=== PATIENT | male | born 1960 | race Caucasian/White ===

== ENCOUNTER 2020-12-18 11:13 | Emergency (ER) | payer BC ==
[~2020-12-18] VITALS: Ht 185.4 cm; Wt 108.4 kg
[~2020-12-18 11:13] MED LIST: CITALOPRAM HBR40 MG PO; LORAZEPAM1 MG PO
--- OUTSIDE RECORDS SUMMARY | 2020-12-18 11:16 | XMS ---
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 Ted has no Care Guidelines for this patient. Elvis VISIT COUNT (12 MO.) 1 [facility] Marquez TOTAL 1 NOTE: Visits indicate total known visits. ED/C VISIT TRACKING (12 MO.) 12/18/2020 11:14 [facility] Tre[facility] [place] TYPE: Emergency COMPLAINT: - LACERATION ON STOMACH INPATIENT VISIT TRACKING (12 MO.) No inpatient visits to display in this time frame [email or web address]
[2020-12-18] MEDS ORDERED: LISINOPRIL10 MG PO (11:26)
== END 2020-12-18 12:36 | disposition home or self-care (01) ==
LOC: ED 11:13
DX: S31.119A Laceration without foreign body of abdominal wall, unspecified quadrant without penetration into peritoneal cavity, initial encounter (principal); W26.0XXA Contact with knife, initial encounter; Z23 Encounter for immunization; Z87.891 Personal history of nicotine dependence; Z79.899 Other long term (current) drug therapy
CPT/HCPCS: 12002; 90471; 90715; 99282-25

== ENCOUNTER 2022-03-21 12:46 | Emergency (ER) | payer OTHER, BC ==
[~2022-03-21] VITALS: Ht 185.4 cm; Wt 125.1 kg
[~2022-03-21 12:46] MED LIST changes: +LISINOPRIL10 MG PO
--- OUTSIDE RECORDS SUMMARY | 2022-03-21 12:49 | XMS ---
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 ELetty VISIT COUNT (12 MO.) 1 GARRET Marquez TOTAL 1 NOTE: Visits indicate total known visits. ED/UCC VISIT TRACKING (12 MO.) 03/21/2022 12:47 [facility] [place] TYPE: Emergency COMPLAINT: - FALL, R ELBOW, SOB, BACK PAIN INPATIENT VISIT TRACKING (12 MO.) No inpatient visits to display in this time frame [email or web address]
[2022-03-21] MEDS ORDERED: DAYVIGO10 MG PO (14:45)
[2022-03-21] MEDS ORDERED: ROSUVASTATIN CA20 MG PO (14:45)
[2022-03-21] MEDS ORDERED: HYDROCODON-ACE1 EA11 PO (17:29)
[2022-03-21] MEDS ORDERED: CEPHALEXIN500 M1 PO (17:29)
[2022-03-23] MEDS ORDERED: BACTRIM DS TAB1 EACH PO (16:35)
[2022-03-23] MEDS ORDERED: HYDROCODON-ACE1 EA11 PO (16:35)
== END 2022-03-21 17:46 | disposition home or self-care (01) ==
LOC: ED 12:46
DX: S20.211A Contusion of right front wall of thorax, initial encounter (principal); M70.21 Olecranon bursitis, right elbow; I10 Essential (primary) hypertension; Z79.899 Other long term (current) drug therapy; W00.0XXA Fall on same level due to ice and snow, initial encounter
CPT/HCPCS: 71046; 73080; 99283-25; A9270

== ENCOUNTER 2022-03-24 14:41 | Emergency (ER) | payer BC ==
[~2022-03-24] VITALS: Ht 185.4 cm; Wt 125.1 kg
[~2022-03-24 14:41] MED LIST changes: +BACTRIM DS TAB1 EACH PO; +CEPHALEXIN500 M1 PO; +DAYVIGO10 MG PO; +HYDROCODON-ACE1 EA11 PO; +ROSUVASTATIN CA20 MG PO
--- OUTSIDE RECORDS SUMMARY | 2022-03-24 14:44 | XMS ---
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 Elvis VISIT COUNT (12 MO.) 3 [facility] [place] [facility] TOTAL 3 NOTE: Visits indicate total known visits. ED/C VISIT TRACKING (12 MO.) 03/24/2022 14:42 [facility] [place] TYPE: Emergency COMPLAINT: - R ARM/HAND SWELLING 03/23/2022 11:33 [facility] [place] TYPE: Emergency COMPLAINT: - R ELBOW SWELLING 03/21/2022 12:[address] [facility] [place] TYPE: Emergency COMPLAINT: - FALL, R ELBOW, SOB, BACK PAIN DIAGNOSES: - Dorsalgia, unspecified - Fall on same level due to ice and snow, initial encounter - Other roasterman (current) drug therapy - Olecranon bursitis, right elbow - Contusion of right front wall of thorax, initial encounter - Essential (primary) hypertension INPATIENT VISIT TRACKING (12 MO.) No inpatient visits to display in this time frame [email or web address]
== END 2022-03-24 21:15 | disposition home or self-care (01) ==
LOC: ED 14:41
DX: M70.21 Olecranon bursitis, right elbow (principal); I10 Essential (primary) hypertension; Z79.899 Other long term (current) drug therapy
CPT/HCPCS: 36415; 80048; 85025; 93971; 99284-25; A9270; J0696; J3370; J7060

== ENCOUNTER 2023-02-15 09:36 | Emergency (ER) | payer BC ==
[~2023-02-15] VITALS: Ht 185.4 cm; Wt 125.1 kg
--- OUTSIDE RECORDS SUMMARY | 2023-02-15 09:38 | XMS ---
PreManage Notification: HERRERA JOHNSON Security Rehab Aid Events No recent Security Events currently on file CRITERIA MET - [facility] - 2 Visits in 30 Days CARE PROVIDERS ALISSA CASTILLO [facility] 12/20/2020-Current PHONE: Unknown Ted has no Care Guidelines for this patient. Elvis VISIT COUNT (12 MO.) [address] [place] [address] TOTAL 5 NOTE: Visits indicate total known visits. ED/C VISIT TRACKING (12 MO.) 02/15/2023 09:37 [facility] [place] TYPE: Emergency COMPLAINT: - POST SURGERY, R ARM WOUND 02/11/2023 19:29 [facility] [place] TYPE: Emergency COMPLAINT: - FORIEGN BODY IN THROAT 03/24/2022 14:42 [facility] [place] TYPE: Emergency COMPLAINT: - R ARM/HAND SWELLING/ NO INJ DIAGNOSES: - Essential (primary) hypertension - Olecranon bursitis, right elbow - Other half-way (current) drug therapy - Pain in right arm 03/23/2022 11:33 [facility] [place] TYPE: Emergency COMPLAINT: - R ELBOW SWELLING DIAGNOSES: - Essential (primary) hypertension - Olecranon bursitis, right elbow - Other half-way (current) drug therapy - Pain in right elbow 03/21/2022 12:47 [facility] [place] TYPE: Emergency COMPLAINT: - FALL, R ELBOW, SOB, BACK PAIN DIAGNOSES: - Contusion of right front wall of thorax, initial encounter - Dorsalgia, unspecified - Essential (primary) hypertension - Fall on same level due to ice and snow, initial encounter - Olecranon bursitis, right elbow - Other director long term care (current) drug therapy INPATIENT VISIT TRACKING (12 MO.) 02/11/2023 19:30 [facility] [place] TYPE: Observation COMPLAINT: - FOREIGN BODY OF ESOPHOGUS DIAGNOSES: - Anxiety disorder, unspecified - Contact with and (suspected) exposure to COVID-19 - Depression, unspecified - Essential (primary) hypertension - Food in esophagus causing other injury, initial encounter [id number]
[2023-02-15] MEDS ORDERED: MELATONIN10 M2 PO (10:23)
[2023-02-15 10:38] LABS: BASOPHILS 0.4 % (0-2); EOSINOPHILS 5.1 % (0-6); HEMOGLOBIN 16.5 g/dL (12.0-18.0); LYMPHOCYTES 6.9 % (24-44); MCH 31.7 (27-36); MCHC 33.6 g/dl (30-36); MCV 94.5 fl (81-99); MONOCYTES 9.9 % (0-12); NEUTROPHILS 77.7 % (39-80); PLATELET COUNT 187 K/uL (140-440); RBC 5.19 M/ul (4.3-5.7); RDW 13.7 (10.5-15.0)
[2023-02-15 10:56] LABS: ALBUMIN 3.9 g/dL (3.4-5.0); BILIRUBIN, TOTAL 0.7 ng/dL (0.2-1.0); BUN/CREATININE RATIO 16.36 (6.0-28.6); CALCIUM 8.7 mg/dL (8.5-10.1); CREATININE, SERUM 1.1 mg/dL (0.70-1.30); PROTEIN, TOTAL 7.8 g/dL (6.4-8.2)
[2023-02-15 11:25] LABS: LACTIC ACID, BLOOD 0.7 mmol/L (0.4-2.0)
[2023-02-15 13:14] VITALS: BP 149/94
== END 2023-02-15 13:14 | disposition home or self-care (01) ==
LOC: ED 09:36
PROVIDERS: Emergency Medicine
DX: T81.41XA Infection following a procedure, superficial incisional surgical site, initial encounter (principal); L03.113 Cellulitis of right upper limb; Z20.822 Contact with and (suspected) exposure to COVID-19; I10 Essential (primary) hypertension; Z79.899 Other long term (current) drug therapy
CPT/HCPCS: 36415; 80053; 83605; 85025; 96375; 99284-25; C9803; J0690; J0878; J1885; Q9967; U0002

== ENCOUNTER 2023-02-18 12:46 | Emergency (ER) | payer BC ==
[~2023-02-18] VITALS: Ht 185.4 cm; Wt 125.0 kg
[~2023-02-18 12:46] MED LIST changes: +MELATONIN10 M2 PO
--- OUTSIDE RECORDS SUMMARY | 2023-02-18 12:48 | XMS ---
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 Elvis VISIT COUNT (12 MO.) 6 [facility] TOTAL 6 NOTE: Visits indicate total known visits. ED/C VISIT TRACKING (12 MO.) 02/18/2023 12:47 [facility] [place] TYPE: Emergency COMPLAINT: - WOUND CHECK 02/15/2023 09:37 [facility] [place] TYPE: Emergency COMPLAINT: - CELLULITIS R ARM DIAGNOSES: - Cellulitis of right upper limb - Contact with and (suspected) exposure to COVID-19 - Essential (primary) hypertension - Infection following a procedure, superficial incisional surgical site, initial encounter - Other manager intermediate (current) drug therapy - Pain in right arm 02/11/2023 19:29 [facility] [place] TYPE: Emergency COMPLAINT: - FORIEGN BODY IN THROAT 03/24/2022 14:42 [facility] [place] TYPE: Emergency COMPLAINT: - R ARM/HAND SWELLING/ NO INJ DIAGNOSES: - Essential (primary) hypertension - Olecranon bursitis, right elbow - Other halfway (current) drug therapy - Pain in right arm 03/23/2022 11:33 [facility] [place] TYPE: Emergency COMPLAINT: - R ELBOW SWELLING DIAGNOSES: - Essential (primary) hypertension - Olecranon bursitis, right elbow - Other halfway (current) drug therapy - Pain in right elbow 03/21/2022 12:47 [facility] [place] TYPE: Emergency COMPLAINT: - FALL, R ELBOW, SOB, BACK PAIN DIAGNOSES: - Contusion of right front wall of thorax, initial encounter - Dorsalgia, unspecified - Essential (primary) hypertension - Fall on same level due to ice and snow, initial encounter - Olecranon bursitis, right elbow - Other halfway (current) drug therapy INPATIENT VISIT TRACKING (12 MO.) 02/11/2023 19:30 [facility] [place] TYPE: Observation COMPLAINT: - FOREIGN BODY OF ESOPHOGUS DIAGNOSES: - Anxiety disorder, unspecified - Contact with and (suspected) exposure to COVID-19 - Depression, unspecified - Essential (primary) hypertension - Food in esophagus causing other injury, initial encounter [id number]
[2023-02-18 13:13] VITALS: BP 157/100
== END 2023-02-18 13:13 | disposition home or self-care (01) ==
LOC: ED 12:46
DX: Z48.01 Encounter for change or removal of surgical wound dressing (principal); I10 Essential (primary) hypertension; Z79.899 Other long term (current) drug therapy
CPT/HCPCS: 99282

== ENCOUNTER 2024-01-30 06:00 | Day surgery (SDC) | payer BC ==
[2024-01-24 17:05] VITALS: BP 121/78
[~2024-01-30] VITALS: Ht 185.4 cm; Wt 115.9 kg
[2024-01-30 06:11] VITALS: BP 130/78
[2024-01-30] MEDS ORDERED: propofoL 200 MG/20 ML VIAL ONE (06:33)
[2024-01-30] MEDS ORDERED: IBLOOD GLUCOSE TEST STRIP 1 EA TEST VI PRN (07:00)
[2024-01-30] MEDS ORDERED: LIDOCAINE HCL 1% 5 ML SDV INJ ONE (07:00)
[2024-01-30] MEDS ORDERED: LACTATED RINGER'S 1,000 ML IV SCH (07:00)
[2024-01-30] MEDS ORDERED: LACTATED RINGER'S 1,000 ML IV ONE (07:41)
[2024-01-30 08:31] VITALS: BP 122/94
--- NOTE | 2024-01-30 10:11 | NUR ---
01/30/24 Raven1 Kelly Reyes 0752- PT ARRIVES TO THE PACU ON LL SIDE WITH ORAL AIRWAY IN PLACE AND 6L O2 VIA MASK. LR INFUSING IN RIGHT HAND. PT DOES NOT WAKE WITH VERBAL AND TACTILE STIMULI. VSS. RESP EVEN AND UNLABORED. MONITORS PLACED. 0800- PT PASSING LARGE AMOUNTS OF GAS WHILE RESTING. 0804- PT EYES OPEN WITH VERBAL AND TACTILE STIMULI. PT ABLE TO FOLLOW COMMANDS. ORAL AIRWAY REMOVED AND O2 TURNED OFF. PT REORIENTED TO THE PACU. PT DENIES PAIN AND NAUSEA. PT TALKING WITH RN. 0807- PT INDEPENDENTLY ROLLED TO HIS BACK IN SEMIFOWLERS. 0820- PT HOB INCREASED AND COFFEE WITH CREAMER GIVEN. PT TOLERATING LIQUIDS WELL. 0825- PT GIVEN DC INSTRUCTIONS. NO QUESTIONS OR CONCERNS AT THIS TIME. 0835- MONITORS REMOVED AT THIS TIME AND PT DRESSING INDEPENDENTLY. IV REMOVED. 0838- PT ABLE TO AMBULATE INDEPENDENTLY TO . GAIT IS STEADY. PT HAS NO QUESTIONS. PT LEAVES WITH ALL BELONGINGS.
--- NOTE | 2024-01-31 07:30 | OR ---
[facility] [address], [place] [address] Signed DATE OF OPERATION: 01/30/2024 SURGEON: Zev Jarvis MD PREOPERATIVE DIAGNOSIS: Personal history of colonic polyps. POSTOPERATIVE DIAGNOSES: 1. Minimal to moderate sigmoid diverticulosis. 2. Minimal to moderate internal hemorrhoids. PROCEDURE: Colonoscopy without biopsy. ESTIMATED BLOOD LOSS: None. 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 He originally is from [place] and spent some in [place] as well. He tells me he has had at least three or maybe four colonoscopies in his life. He remembers having colonoscopy at age 53 back in [address]den. He apparently had some polyps and was asked to return on a short interval. He thinks his last colonoscopy was just a few years ago. His primary care provider asked him to see me for followup colonoscopy. He said he has no lower GI complaints. There is no family history of colon cancer or polyps. In the office, we were in the process of tracking down his previous records. I also gave him our pamphlet on colonoscopy. We had reviewed the nature of the test. There is risk including, but not limited to gas bloating, crampy abdominal pain, bleeding, perforation requiring surgery, and missed diagnosis. In addition, All has significant sleep apnea and he is a large man with a full round face, a heavy neck, chest and abdomen. He also has various medications including hydrocodone, hydroxyzine, trazodone, and citalopram along with lorazepam. Therefore, we asked for monitored anesthesia care with propofol infusion with increased monitoring. That proved to be a good decision for All. He had expressed understanding and wished to proceed. He understands an adult person has to take him home afterwards. PROCEDURE IN DETAIL: All was taken into our endoscopy suite and placed in the left lateral decubitus position. He was given monitored anesthesia care with propofol infusion per our nurse end finder forming department. A digital rectal exam was performed and this was not particularly Electronically Signed By: ZEV JARVIS MD 01/31/24 0730 PATIENT NAME: ALL JOHNSON OPERATIVE REPORT DATE OF : 60 REPORT #: [id number] PHYSICIAN: ZEV JARVIS MD PCP: ALL MOORE MD REPORT IS CONFIDENTIAL AND NOT TO BE RELEASED WITHOUT AUTHORIZATION [facility] [address], [place] [address] Signed concerning. He had two external anal skin tags. He had good sphincter tone. There were no masses. The adult colonoscope was introduced and advanced under direct visualization of the camera without difficulty. His prep was good. We could easily see the appendiceal orifice and ileocecal valve. The scope was then slowly withdrawn. He does have diverticula in the sigmoid colon. They were moderate in size, few to moderate in number and scattered about. We found no polyps throughout the entire colon or rectum on this occasion. Upon retroflexion of the scope, he has minimal to moderate internal hemorrhoid columns. After this, the gas was suctioned out and the colonoscope removed. All tolerated the procedure quite well. RECOMMENDATIONS: All can return in 5 years for repeat screening colonoscopy. Zev Jarvis MD ALB/MODL /[id number] cc: MD Zev Lai MD Copies: ALL MOORE MD, ANDREW L MD ~ Electronically Signed By: ZEV JARVIS MD 01/31/24 0730 PATIENT NAME: ALL JOHNSON EUN OPERATIVE REPORT DATE OF : 60 REPORT #: [id number] PHYSICIAN: ZEV JARVIS MD PCP: ALL MOORE MD REPORT IS CONFIDENTIAL AND NOT TO BE RELEASED WITHOUT AUTHORIZATION
== END 2024-01-30 08:38 | disposition home or self-care (01) ==
LOC: DS 06:00
PROVIDERS: ATTEND Colon & Rectal Surgery
PROC: 0DJD8ZZ Inspection of Lower Intestinal Tract, Via Natural or Artificial Opening Endoscopic (ICD-10-PCS; principal; 2024-01-30 07:30)
DX: Z12.11 Encounter for screening for malignant neoplasm of colon (principal); K57.30 Diverticulosis of large intestine without perforation or abscess without bleeding; K64.8 Other hemorrhoids; K64.4 Residual hemorrhoidal skin tags; G47.33 Obstructive sleep apnea (adult) (pediatric); F32.9 Major depressive disorder, single episode, unspecified; E78.5 Hyperlipidemia, unspecified; I10 Essential (primary) hypertension; M62.08 Separation of muscle (nontraumatic), other site; F17.220 Nicotine dependence, chewing tobacco, uncomplicated; E66.9 Obesity, unspecified; Z68.36 Body mass index [BMI] 36.0-36.9, adult; Z86.0100 Personal history of colon polyps, unspecified; Z79.899 Other long term (current) drug therapy
CPT/HCPCS: 00811; J2704; J7121

== ENCOUNTER 2025-02-06 20:17 | Emergency (ER) | payer BC ==
[~2025-02-06] VITALS: Ht 185.4 cm; Wt 115.0 kg
--- OUTSIDE RECORDS SUMMARY | 2025-02-06 20:23 | XMS ---
PreManage Notification: HERRERA JOHNSON Security Client Support Professional Events No recent Security Events currently on file CRITERIA MET - [facility] - 2 Visits in 30 Days CARE PROVIDERS There are no care providers on record at this time. Ted has no Care Guidelines for this patient. Elvis VISIT COUNT (12 MO.) 1 [facility] Worley [facility] TOTAL 2 NOTE: Visits indicate total known visits. ED/UCC VISIT TRACKING (12 MO.) 02/06/2025 20:17 [facility] Treviño [place] TYPE: Emergency COMPLAINT: - PORT CHECK 01/09/2025 20:41 [facility] TYPE: Emergency DIAGNOSES: - Cellulitis of abdominal wall - post op/ ref INPATIENT VISIT TRACKING (12 MO.) 01/09/2025 20:41 [facility] TYPE: Surgery DIAGNOSES: - Cellulitis of abdominal wall 12/15/2024 05:52 [facility] TYPE: Surgery DIAGNOSES: - Separation of muscle (nontraumatic), other site - Umbilical hernia with obstruction, without gangrene - Umbilical hernia without obstruction or gangrene [email or web address]
[2025-02-06 20:51] VITALS: BP 154/98
== END 2025-02-06 20:51 | disposition home or self-care (01) ==
LOC: ED 20:17
DX: Z48.03 Encounter for change or removal of drains (principal); I10 Essential (primary) hypertension; Z79.899 Other long term (current) drug therapy
CPT/HCPCS: 99282